=== PATIENT | female | born 1995 | race American Indian/Alaskan Native ===

== ENCOUNTER 2016-09-16 11:51 | Inpatient (IN) | payer MEDICAID ==
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
[2016-09-16] MEDS ORDERED: MINERAL OIL PO PRN (14:18)
[2016-09-16] MEDS ORDERED: STADOL IV PRN (14:18)
[2016-09-16] MEDS ORDERED: PHENERGAN PO PRN (14:18)
[2016-09-16] MEDS ORDERED: XYLOCAINE 2% INFILTRATI ONE (14:18)
[2016-09-16] MEDS ORDERED: BRETHINE SUB-Q PRN (14:18)
[2016-09-16] MEDS ORDERED: BRETHINE IVP PRN (14:32)
[2016-09-16] MEDS ORDERED: ePHEDrine SULFATE IV PRN ×2 (14:33→16:13)
[2016-09-16 14:48] LABS: Hematocrit 39.4 % (30.3-42.9); Hemoglobin 13.3 gm/dl (10.1-14.3); Mean Corpuscular HGB Conc 34 % (30-34); Mean Corpuscular Hemoglobin 32 pg (28-32); Mean Corpuscular Volume 93 fl (79-97); Platelet Count 203 K/mm3 (140-440); Red Blood Count 4.22 M/mm3 (3.65-5.03); Red Cell Distribution Width 12.3 % (13.2-15.2); White Blood Count 8.9 K/mm3 (4.5-11.0)
[2016-09-16] MEDS ORDERED: LACTATED RINGERS 1,000 ML IV SCH (15:00)
[2016-09-16] MEDS ORDERED: ePHEDrine SULFATE ONE (16:10)
[2016-09-16] MEDS ORDERED: NARCAN 2 MG/2 ML IV PRN (16:13)
--- NOTE | 2016-09-16 16:14 | Anesthesia Consultation ---
Anesthesia Consult and Med Hx Date of service: 09/16/16 - Airway Anesthetic Teeth Evaluation: Good ROM Head & Neck: Adequate Mental/Hyoid Distance: Adequate Mallampati Class: Class II Intubation Access Assessment: Probably Good - Pulmonary Exam CTA: Yes - Cardiac Exam Cardiac Exam: RRR - Pre-Operative Health Status ASA Pre-Surgery Classification: ASA2 Proposed Anesthetic Plan: Epidural, Spinal - Pulmonary Hx Asthma: No COPD: No Hx Pneumonia: No - Central Nervous System Hx Seizures: No Hx Psychiatric Problems: No - Endocrine Hx Renal Disease: No Hx End Stage Renal Disease: No Hx Hypothyroidism: No Hx Hyperthyroidism: No - Hematic Hx Anemia: No - Other Systems Hx Alcohol Use: No - Additional Comments Anesthesia Medical History Comments: +IUP
[2016-09-16] MEDS ORDERED: PITOCin/NS 30 UNIT/500ML 30,000 MILLIUNITS/500 ML BAG IV ONE (16:41)
[2016-09-16] MEDS ORDERED: fentaNYL-BUPIV 2 MCG/ML-0.125% 200 MCG/100 ML BAG EPIDURAL SCH (17:00)
--- NOTE | 2016-09-16 17:53 | Event Note ---
Date: 09/16/16 Patient comfortable with epidural repeat exam reveals cervix to be 4 cm 90% effaced -2 station. Patient now on 12 miu/min of Pitocin. Artificial rupture of membranes revealed clear fluid fetus Electrode and intrauterine pressure catheter was placed. We'll continue with labor augmentation
[2016-09-16] MEDS: PITOCin/NS 20 UNIT/1000ML DRIP 20 UNITS/1,000 ML BAG IV SCH ×2 (21:27→22:34)
--- NOTE | 2016-09-16 21:50 | Procedure Note ---
OB Delivery Note - Delivery Date of Delivery: 09/16/16 Surgeon: MARGY GA Estimated blood loss: 300cc - Vaginal Delivery presentation: vertex Delivery position: OA Intrapartum events: none Delivery induction: none Delivery augmentation: rupture of membranes, pitocin Delivery monitor: external FHT, external uterine, internal FHT, internal uterine Route of delivery: Delivery placenta: spontaneous Delivery cord: 3 umbilical vessels Episiotomy: none Delivery laceration: none Anesthesia: epidural Delivery comments: heart tones down to 60's NICU at delivery - A at 1 minute: 8 at 5 minutes: 9 Gender: Male
[2016-09-17] MEDS ORDERED: MILK OF MAGNESIA PO PRN (00:36)
[2016-09-17] MEDS ORDERED: PHENERGAN PO PRN (00:36)
[2016-09-17] MEDS ORDERED: BENADRYL PO PRN (00:36)
[2016-09-17] MEDS ORDERED: LANSINOH TP PRN (00:36)
[2016-09-17] MEDS ORDERED: SODIUM CHLORIDE FLUSH SYRINGE 10 ML IV NR (00:36)
[2016-09-17] MEDS ORDERED: TYLENOL PO PRN (00:36)
[2016-09-17] MEDS ORDERED: DULCOLAX PR PRN (00:36)
[2016-09-17] MEDS ORDERED: TUCKS PAD TP PRN (00:36)
[2016-09-17] MEDS: MOTRIN PO SCH ×3 (01:42→18:21)
[2016-09-17] MEDS: NORCO 5/325 PO PRN ×2 (04:53→20:22)
[2016-09-17] MEDS ORDERED: PRENATAL VITAMIN PO SCH (10:00)
--- NOTE | 2016-09-17 10:19 | Progress Note ---
Subjective Date of service: 09/17/16 Interval history: Epidural is out. No anesthetic related complaints. Objective - Constitutional Vitals: Vital Signs - 12hr 09/16/16 09/16/16 09/16/16 22:24 22:36 22:51 Temperature Pulse Rate 103 H 94 H 85 Pulse Rate [ Left Radial] Pulse Rate [ Right From Monitor] Respiratory Rate Blood Pressure 122/57 131/75 135/79 Blood Pressure [Left Arm] 09/17/16 09/17/16 09/17/16 00:46 04:32 04:53 Temperature 98.7 F 98.4 F Pulse Rate Pulse Rate [ Left Radial] Pulse Rate [ 87 91 H Right From Monitor] Respiratory 18 18 18 Rate Blood Pressure Blood Pressure 137/78 100/57 [Left Arm] 09/17/16 08:23 Temperature 97.4 F L Pulse Rate Pulse Rate [ 80 Left Radial] Pulse Rate [ Right From Monitor] Respiratory 20 Rate Blood Pressure Blood Pressure 104/60 [Left Arm] - Labs CBC & Chem 7: 09/16/16 13:45 Labs: Abnormal lab results 09/16/16 Range/Units 13:45 RDW 12.3 L (13.2-15.2) %
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
[2016-09-17 16:07] LABS: Hematocrit 40.1 % (30.3-42.9); Hemoglobin 13.5 gm/dl (10.1-14.3)
[2016-09-18] MEDS: MOTRIN PO SCH ×3 (00:24→12:09)
[2016-09-18] MEDS: NORCO 5/325 PO PRN (04:40)
[2016-09-18 09:03] VITALS: BP 120/80
--- NOTE | 2016-09-18 12:14 | Discharge Summary ---
Providers - Providers Date of Admission: 09/16/16 13:26 Date of discharge: 09/18/16 Attending physician: MARGY GA 09/17/16 00:36 Consult to Enamel Buffer [CONS] Routine Reason For Exam: assistance with , SNS Primary care physician: REJI VALENCIA Hospitalization Reason for admission: active labor Delivery: Episiotomy: none Other procedures: none complications: none Discharge diagnosis: IUP at term delivered [place] baby: male Hospital course: Patient was admitted underwent a normal spontaneous vaginal delivery. Her course was benign. She was afebrile throughout her stay. Her day 1 hematocrit was 40%. Patient is undecided about control. Patient is attempting to breast-feed Condition at discharge: Good Disposition: DC-01 TO HOME OR SELFCARE - Discharge Diagnoses (1) 39 weeks gestation of Status: Acute (2) Active labor at term Status: Acute (3) Encounter for full-term uncomplicated delivery Status: Acute Plan - Discharge Medications Prescriptions: Ferrous Sulfate [Feosol 325 MG tab] 325 mg PO BID #60 tablet Ibuprofen [Motrin 800 MG tab] 800 mg PO Q6H PRN #30 tablet PRN Reason: Pain - Provider Discharge Summary Activity: routine, no sex for 6 weeks Diet: routine Instructions: routine Additional instructions: [] Smoking cessation referral if applicable(refer to patient education folder for contact #) [] Refer to [facility]'s [facility] Booklet Call your doctor immediately for: * Fever > 100.5 * Heavy vaginal bleeding ( >1 pad per hour) * Severe persistent headache * Shortness of breath * Reddened, hot, painful area to leg or breast * Drainage or odor from incision. * Keep incision clean and dry at all times and follow doctor's instructions regarding bathing/showering Patient to call office to schedule sons circumcision 1-2 weeks. Patient to follow-up in office for post visit in 4 weeks - Follow up plan Follow up: REJI VALENCIA MD [Primary Care Provider] - 7 Days
== END 2016-09-18 15:00 | disposition home or self-care (01) | DRG 775 ==
LOC: TRG 11:51 → LD 13:26 → OB 23:07
PROVIDERS: ADMIT Obstetrics & Gynecology; ATTEND Obstetrics & Gynecology
PROC: 10E0XZZ Delivery of Products of Conception, External Approach (ICD-10-PCS; principal; 2016-09-16)
PROC: 3E0S3CZ (ICD-10-PCS; 2016-09-16)
PROC: 00HU33Z Insertion of Infusion Device into Spinal Canal, Percutaneous Approach (ICD-10-PCS; 2016-09-16)
PROC: 10907ZC Drainage of Amniotic Fluid, Therapeutic from Products of Conception, Via Natural or Artificial Opening (ICD-10-PCS; 2016-09-16)
DX: O42.02 Full-term premature rupture of membranes, onset of labor within 24 hours of rupture (principal); O99.52 Diseases of the respiratory system complicating childbirth; Z3A.39 39 weeks gestation of pregnancy; Z37.0 Single live birth; J45.909 Unspecified asthma, uncomplicated; O99.320 Drug use complicating pregnancy, unspecified trimester; F12.90 Cannabis use, unspecified, uncomplicated
CPT/HCPCS: 36415; 85014; 85018; 85027; 86850; 86900; 86901; 99211; G0463; J2590; J7120

== ENCOUNTER 2017-08-02 11:17 | Emergency (ER) | payer MEDICAID ==
[2017-08-02 11:27] VITALS: BP 118/70
[2017-08-02 12:12] LABS: Bilirubin,Urine NEG (Negative); Blood,Urine MOD (Negative); Color,Urine Yellow (Yellow); Mucus,Urine FEW /HPF; Protein,Urine <15 mg/dL mg/dL (Negative)
[2017-08-02 12:25] LABS: Basophils # (Auto) 0.1 K/mm3 (0.0-0.1); Basophils % (Auto) 0.7 % (0.0-1.8); Eosinophils % (Auto) 0.6 % (0.0-4.3); Hematocrit 42.2 % (30.3-42.9); Hemoglobin 14.1 gm/dl (10.1-14.3); Lymphocytes # (Auto) 1.5 K/mm3 (1.2-5.4); Lymphocytes % (Auto) 21.3 % (13.4-35.0); Mean Corpuscular HGB Conc 33 % (30-34); Mean Corpuscular Hemoglobin 32 pg (28-32); Mean Corpuscular Volume 96 fl (79-97); Monocytes # (Auto) 0.5 K/mm3 (0.0-0.8); Platelet Count 252 K/mm3 (140-440); Red Blood Count 4.42 M/mm3 (3.65-5.03); Red Cell Distribution Width 12.8 % (13.2-15.2)
[2017-08-02 12:30] LABS: Alanine Aminotransferase 13 units/L (7-56); Albumin 4.2 g/dL (3.9-5); BUN/Creatinine Ratio 11; Blood Urea Nitrogen 9 mg/dL (7-17); Calcium 9.3 mg/dL (8.4-10.2); Hemolysis Index 16; Lipase 16 units/L (13-60)
--- NOTE | 2017-08-02 14:11 | Emergency Department Report ---
ED Female HPI - General Chief complaint: Abdominal Pain Stated complaint: LOWER ABD PAIN Time Seen by Provider: 08/02/17 13:49 Source: patient Mode of arrival: Ambulatory Limitations: No Limitations - History of Present Illness Initial comments: Patient is 22 years old female with no significant past medical history. Patient presented to the ER complaining of menstrual cramps for the last 5 days. Patient denied any nausea or vomiting. No vaginal discharge. MD Complaint: pelvic pain -: days(s) Radiation: suprapubic Quality: cramping Consistency: intermittent - Related Data Home Medications Medication Instructions Recorded Confirmed Last Taken Vit No.130/Iron/Folic 1 tab PO QDAY 01/24/16 09/16/16 2 Weeks Ago [ Tablet] ~09/02/16 Previous Rx's Medication Instructions Recorded Last Taken Type Ferrous Sulfate [Feosol 325 MG tab] 325 mg PO BID #60 tablet 09/17/16 Unknown Rx Ibuprofen [Motrin 800 MG tab] 800 mg PO Q6H PRN #30 tablet 09/17/16 Unknown Rx Ketorolac [Toradol] 10 mg PO Q6H PRN #20 tablet 08/02/17 Unknown Rx Allergies Allergy/AdvReac Type Severity Reaction Status Date / Time No Known Allergies Allergy Verified 01/24/16 16:48 ED Review of Systems ROS: Stated complaint: LOWER ABD PAIN Other details as noted in HPI Comment: All other systems reviewed and negative Constitutional: denies: chills, fever Respiratory: denies: cough, orthopnea, shortness of breath, SOB with exertion Cardiovascular: denies: chest pain, palpitations, dyspnea on exertion Gastrointestinal: abdominal pain (suprapubic). denies: nausea, vomiting, diarrhea, constipation, melena Genitourinary: abnormal menses Musculoskeletal: denies: back pain Neurological: denies: headache, weakness, numbness ED Past Medical Hx - Past Medical History Previous Medical History?: Yes Hx Congestive Heart Failure: No Hx Diabetes: No Hx Renal Disease: No Hx Seizures: No Hx Asthma: No Hx COPD: No Hx HIV: No Additional medical history: Vaginal delivery 09-16-2017 - Surgical History Additional Surgical History: skin graft to LEFT leg - Social History Smoking Status: Current Every Day Smoker Substance Use Type: Alcohol - Medications Home Medications: Home Medications Medication Instructions Recorded Confirmed Last Taken Type Vit No.130/Iron/Folic 1 tab PO QDAY 01/24/16 09/16/16 2 Weeks Ago History [ Tablet] ~09/02/16 Ferrous Sulfate [Feosol 325 MG tab] 325 mg PO BID #60 tablet 09/17/16 Unknown Rx Ibuprofen [Motrin 800 MG tab] 800 mg PO Q6H PRN #30 tablet 09/17/16 Unknown Rx Ketorolac [Toradol] 10 mg PO Q6H PRN #20 tablet 08/02/17 Unknown Rx ED Physical Exam - General Limitations: No Limitations General appearance: alert, in no apparent distress - Head Head exam: Present: atraumatic, normocephalic, normal inspection - Eye Eye exam: Present: normal appearance - ENT ENT exam: Present: normal exam, normal orophraynx, mucous membranes moist - Neck Neck exam: Present: normal inspection, full ROM. Absent: tenderness, meningismus - Respiratory Respiratory exam: Present: normal lung sounds bilaterally. Absent: respiratory distress, wheezes, rales, rhonchi, stridor, chest wall tenderness, accessory muscle use, decreased breath sounds, prolonged expiratory - Cardiovascular Cardiovascular Exam: Present: regular rate, normal rhythm, normal heart sounds - GI/Abdominal GI/Abdominal exam: Present: soft, normal bowel sounds. Absent: distended, tenderness, guarding, rebound, rigid, organomegaly, mass, bruit, pulsatile mass - Extremities Exam Extremities exam: Present: normal inspection, full ROM, normal capillary refill - Back Exam Back exam: Present: normal inspection, full ROM. Absent: tenderness, CVA tenderness (R), CVA tenderness (L), muscle spasm, paraspinal tenderness, vertebral tenderness - Neurological Exam Neurological exam: Present: alert, oriented X3, CN II-XII intact, normal gait, reflexes normal - Skin Skin exam: Present: warm, intact, normal color ED Course Vital Signs 08/02/17 11:23 Temperature 98.6 F Pulse Rate 83 Respiratory 16 Rate Blood Pressure 118/70 O2 Sat by Pulse 97 Oximetry ED Medical Decision Making - Lab Data Result diagrams: 08/02/17 11:50 08/02/17 11:50 Critical care attestation.: If time is entered above; I have spent that time in minutes in the direct care of this critically ill patient, excluding procedure time. ED Disposition Clinical Impression: Menstrual syndrome Disposition: - TO HOME OR SELFCARE Is pt being admited?: No Condition: Stable Instructions: Abdominal Pain (ED), Dysmenorrhea (ED) Prescriptions: Ketorolac [Toradol] 10 mg PO Q6H PRN #20 tablet PRN Reason: Pain Referrals: PRIMARY CARE,MD [Primary Care Provider] - 3-5 Days
[2017-08-02 15:02] LABS: HCG Qualitative,Urine Negative (Negative)
[2017-08-02] MEDS ORDERED: TORADOL IM ONE (15:17)
== END 2017-08-02 15:41 | disposition home or self-care (01) ==
LOC: ED 11:17
DX: N94.3 Premenstrual tension syndrome (principal); F17.200 Nicotine dependence, unspecified, uncomplicated
CPT/HCPCS: 36415; 80053; 81001; 81025; 83690; 85025; 96372; 99283; J1885

== ENCOUNTER 2017-09-02 14:23 | Emergency (ER) | payer MEDICAID ==
--- NOTE | 2017-09-02 17:58 | Emergency Department Report ---
ED Female HPI - General Chief complaint: Urogenital-Female Stated complaint: TAMPON STUCK INSIDE Time Seen by Provider: 09/02/17 17:24 Source: patient Mode of arrival: Ambulatory Limitations: No Limitations - History of Present Illness Initial comments: 22-year-old female presents with complaint of tampon stuck in her vagina since early this morning MD Complaint: vaginal bleeding, other Onset/Timin -: hour(s) - Related Data Home Medications Medication Instructions Recorded Confirmed Last Taken Vit No.130/Iron/Folic 1 tab PO QDAY 01/24/16 09/16/16 2 Weeks Ago [ Tablet] ~09/02/16 Previous Rx's Medication Instructions Recorded Last Taken Type Ferrous Sulfate [Feosol 325 MG tab] 325 mg PO BID #60 tablet 09/17/16 Unknown Rx Ibuprofen [Motrin 800 MG tab] 800 mg PO Q6H PRN #30 tablet 09/17/16 Unknown Rx Ketorolac [Toradol] 10 mg PO Q6H PRN #20 tablet 08/02/17 Unknown Rx Acetaminophen/Codeine [Tylenol 1 tab PO Q6H PRN #12 tab 09/02/17 Unknown Rx /Codeine # 3 tab] Ibuprofen [Motrin] 600 mg PO Q8H PRN #20 tablet 09/02/17 Unknown Rx Allergies Allergy/AdvReac Type Severity Reaction Status Date / Time No Known Allergies Allergy Verified 09/02/17 14:46 ED Review of Systems ROS: Stated complaint: TAMPON STUCK INSIDE Other details as noted in HPI Constitutional: denies: chills, fever Eyes: denies: eye pain, eye discharge, vision change ENT: denies: ear pain, throat pain Respiratory: denies: cough, shortness of breath, wheezing Cardiovascular: denies: chest pain, palpitations Endocrine: no symptoms reported Gastrointestinal: denies: abdominal pain, nausea, diarrhea Genitourinary: as per HPI. denies: urgency, dysuria, discharge Musculoskeletal: denies: back pain, joint swelling, arthralgia Skin: denies: rash, lesions Neurological: denies: headache, weakness, paresthesias Psychiatric: denies: anxiety, depression Hematological/Lymphatic: denies: easy bleeding, easy bruising ED Past Medical Hx - Past Medical History Hx Congestive Heart Failure: No Hx Diabetes: No Hx Renal Disease: No Hx Seizures: No Hx Asthma: No Hx COPD: No Hx HIV: No Additional medical history: Vaginal delivery 09-16-2017 - Surgical History Additional Surgical History: skin graft to LEFT leg - Social History Smoking Status: Current Every Day Smoker Substance Use Type: Alcohol - Medications Home Medications: Home Medications Medication Instructions Recorded Confirmed Last Taken Type Vit No.130/Iron/Folic 1 tab PO QDAY 01/24/16 09/16/16 2 Weeks Ago History [ Tablet] ~09/02/16 Ferrous Sulfate [Feosol 325 MG tab] 325 mg PO BID #60 tablet 09/17/16 Unknown Rx Ibuprofen [Motrin 800 MG tab] 800 mg PO Q6H PRN #30 tablet 09/17/16 Unknown Rx Ketorolac [Toradol] 10 mg PO Q6H PRN #20 tablet 08/02/17 Unknown Rx Acetaminophen/Codeine [Tylenol 1 tab PO Q6H PRN #12 tab 09/02/17 Unknown Rx /Codeine # 3 tab] Ibuprofen [Motrin] 600 mg PO Q8H PRN #20 tablet 09/02/17 Unknown Rx ED Physical Exam - General Limitations: No Limitations General appearance: alert, in no apparent distress - Head Head exam: Present: atraumatic, normocephalic - Eye Eye exam: Present: normal appearance, PERRL, EOMI - ENT ENT exam: Present: mucous membranes moist - Neck Neck exam: Present: normal inspection - Respiratory Respiratory exam: Present: normal lung sounds bilaterally. Absent: respiratory distress - Cardiovascular Cardiovascular Exam: Present: regular rate, normal rhythm. Absent: systolic murmur, diastolic murmur, rubs, gallop - GI/Abdominal GI/Abdominal exam: Present: soft, normal bowel sounds - External exam: Present: normal external exam Speculum exam: Present: vaginal bleeding, foreign body (bloody tampon stuck near the cervix at 2 o'clock position) Bi-manual exam: Present: normal bi-manual exam - Extremities Exam Extremities exam: Present: normal inspection - Back Exam Back exam: Present: normal inspection - Neurological Exam Neurological exam: Present: alert, oriented X3, CN II-XII intact, normal gait - Psychiatric Psychiatric exam: Present: normal affect, normal mood - Skin Skin exam: Present: warm, dry, intact, normal color. Absent: rash ED Course Vital Signs 09/02/17 14:43 Temperature 97.5 F L Pulse Rate 94 H Blood Pressure 117/69 O2 Sat by Pulse 98 Oximetry ED Medical Decision Making - Medical Decision Making A/P: Foreign body removal vagina 1-tampon successfully removed via speculum exam with vaginal forceps 2-advised patient that she may have some mild bleeding, patient is already menstruating 3-short course Motrin and Tylenol 3 when necessary 4- advised patient to follow up with [facility] Critical care attestation.: If time is entered above; I have spent that time in minutes in the direct care of this critically ill patient, excluding procedure time. ED Disposition Clinical Impression: Vaginal bleeding Vaginal foreign body Qualifiers: Encounter type: initial encounter Qualified Code(s): T19.2XXA - Foreign body in vulva and vagina, initial encounter Disposition: TO HOME OR SELFCARE Is pt being admited?: No Does the pt Need Aspirin: No Condition: Stable Instructions: Vaginal Foreign Body (ED) Prescriptions: Acetaminophen/Codeine [Tylenol /Codeine # 3 tab] 1 tab PO Q6H PRN #12 tab PRN Reason: Pain , Severe (7-10) Ibuprofen [Motrin] 600 mg PO Q8H PRN #20 tablet PRN Reason: Pain Referrals: [facility] [Provider Group] - 3-5 Days Forms: Accompanied Note, Work/School Release Form(ED) Time of Disposition: 19:11
[2017-09-02] MEDS ORDERED: ZOFRAN ODT PO ONE (18:39)
[2017-09-02] MEDS ORDERED: MOTRIN PO ONE (18:39)
[2017-09-02] MEDS ORDERED: NORCO 5/325 PO ONE (18:39)
[2017-09-02 19:34] VITALS: BP 110/64
== END 2017-09-02 19:36 | disposition home or self-care (01) ==
LOC: ED 14:23
DX: T19.2XXA Foreign body in vulva and vagina, initial encounter (principal); N93.9 Abnormal uterine and vaginal bleeding, unspecified; F17.200 Nicotine dependence, unspecified, uncomplicated; Y93.89 Activity, other specified; Y99.8 Other external cause status; Y92.89 Other specified places as the place of occurrence of the external cause
CPT/HCPCS: 99284; Q0162